=== PATIENT | male | born 1965 | race African-American/Black ===

== ENCOUNTER 2018-07-28 09:04 | Inpatient (IN) | payer OTHER ==
[~2018-07-28] VITALS: Ht 167.6 cm; Wt 75.0 kg
[~2018-07-28 09:04] MED LIST: MULTTAB61 PO
[2018-07-28 09:47] LABS: Basophils # (auto) 0 uL; Basophils % (auto) 0.5 % (0.0-2.0); Eosinophils # (auto) 0.1 uL; Lymphocytes # (auto) 1.2 uL; Monocytes # (auto) 1.1 uL; Nucleated Red Blood Cells % 0.1 %
[2018-07-28 09:49] LABS: Hematocrit 55.1 % (41.0-53.0); Hemoglobin 18.9 g/dL (13.5-17.5); Lymphocytes % (auto) 18.4 % (10.0-50.0); Mean Corpuscular Hemoglobin 32.2 pg (28.0-32.0); Mean Corpuscular Hgb Conc. 34.3 g/dL (32.0-36.0); Mean Corpuscular Volume 93.9 fL (80.0-100.0); Monocytes % (auto) 17.1 % (0.0-12.0); Neutrophils # (auto) 4.2 uL; Platelet Count (auto) 239 10^3/uL (140-450); Red Blood Cells 5.86 10^6/uL (4.5-5.90); Red Cell Distribution Width 12.5 % (11.8-14.3); White Blood Cell 6.6 10^3/uL (4.4-10.8)
[2018-07-28] MEDS ORDERED: SODIUM CHLORIDE 0.9% 1,000 ML IV ONE ×2 (09:59)
[2018-07-28 10:11] LABS: Albumin 4.2 g/dL (3.4-5.0); Calcium 9.4 mg/dL (8.5-10.1); Magnesium 2.6 mg/dL (1.6-2.6); Potassium 3.3 mmol/L (3.5-5.1)
[2018-07-28 10:17] LABS: BUN/Creatinine Ratio 16.4
[2018-07-28] MEDS ORDERED: PROMETHAZINE HCL 25 MG/ML 1ML IV PRN (11:45)
[2018-07-28] MEDS ORDERED: MORPHINE SULFATE 4 MG/ML SYR/VIAL IV PRN ×2 (11:45)
[2018-07-28] MEDS ORDERED: cefTRIAXone 1GM/50ML D5W 50 ML IV ONE (11:45)
[2018-07-28] MEDS ORDERED: NITROGLYCERIN 0.4 MG SL TAB SL PRN (11:45)
[2018-07-28] MEDS: SOD CHL 0.9%/ KCL 40MEQ 1,000 ML IV SCH ×2 (11:45→19:46)
[2018-07-28] MEDS ORDERED: MORPHINE SULF INJ 2 MG/ML SYRINGE 1ML IV PRN (11:45)
[2018-07-28 13:02] LABS: INR 1.01 (0.9-1.15); Partial Thromboplastin Time 29.2 sec (23.78-33.04); Prothrombin Time 10.8 sec (9.27-12.13)
[2018-07-28] MEDS: FAMOTIDINE (10MG/ML) 2ML VL IV SCH ×2 (14:57→23:45)
[2018-07-28] MEDS: metroNIDAZOLE 500MG/100ML 100 ML IV SCH ×2 (16:25→21:50)
[2018-07-28 18:14] VITALS: BP 132/72
--- NOTE | 2018-07-28 19:00 | NUR ---
Opening Shift Note Assumed care of patient, awake and alert. No S/S of distress/SOB or pain. Instructed on POC and to call for assist PRN, will continue to monitor for changes Q1hr and PRN.
[2018-07-28 21:53] VITALS: BP 135/76
[2018-07-29] MEDS: SOD CHL 0.9%/ KCL 40MEQ 1,000 ML IV SCH ×2 (04:09→12:45)
[2018-07-29 05:18] VITALS: BP 132/78
[2018-07-29] MEDS: metroNIDAZOLE 500MG/100ML 100 ML IV SCH ×2 (05:58→14:00)
--- NOTE | 2018-07-29 06:30 | NUR ---
RN paged Dr. Frias d/t patient refusing to have surgery and wishes to approach a different treatment alternative for his SBO. Dr. Frias returned call immediately and will speak with the patient in regards to surgery and any alternative treatments if that is what patient is seeking.
--- NOTE | 2018-07-29 08:20 | NUR ---
Opening Note Assumed care of pt, patient is lying quietly and is comfortable, no s/s of distress. Patient has some concerns regarding surgery which was discussed with the overnight stocker RN, Mejia. Will wait for Dr. Frias to make rounds as communicated. POC discussed with patient and will continue to keep patient NPO. Will continue to monitor patient Q1hr and PRN. Bed is in low, locked position, call light in reach and discussed to call if he needs anything.
[2018-07-29] MEDS ORDERED: cefTRIAXone 1GM/50ML D5W 50 ML IV SCH (09:00)
--- NOTE | 2018-07-29 09:03 | NUR ---
PA student Tobias working with Dr. Frias at bedside, Patient is refusing surgery at this time, pt stated "I want to go to my own doctor in [place]." Will continue to monitor patient Q1h and PRN. Patient is in no other discomfort or distress at this time.
[2018-07-29 09:29] VITALS: BP 126/77
[2018-07-29] MEDS ORDERED: ENOXAPARIN SOD 40 MG/0.4 ML SYRINGE SC SCH (10:00)
--- NOTE | 2018-07-29 11:00 | NUR ---
AT THE BEDSIDE DR. LIRIANO AT THE BEDSIDE. PATIENT STATES, "I FELL GREAT, I WANT TO GET OUT OF HERE." PER MD, DISCHARGE PATIENT. MD ADVISING PATIENT TO SEE HIS PRIMARY DOCTOR SOON HE LEAVES HOSPITAL. DR. LIRIANO AWARE OF PATIENTS IMAGING, LABS, AND VITALS. NO NEW ORDERS RECEIVED.
--- NOTE | 2018-07-29 11:23 | NUR ---
Refusing Lab Draw at this time.
[2018-07-29] MEDS: FAMOTIDINE (10MG/ML) 2ML VL IV SCH (11:45)
--- NOTE | 2018-07-29 13:10 | NUR ---
Patient Discharged Patient showing no s/s of distress, IV removed from the R AC, tele box removed. Patient's was at bedside and walked with him to the car to take him home, pt accompanied by Kelly ARELLANO.
--- NOTE | 2018-07-29 13:15 | NUR ---
DISCHARGE Discharge instructions given as ordered. Encourage to follow up with PMD as instructed. All questions and concerns addressed. Patient verbalized understanding. Medication reconciliation form completed and copy given to patient. IV removed with catheter intact. Patient ambulated to car with staff and family member. No distress noted at time of departure.
[2018-07-29 13:18] VITALS: BP 126/78
== END 2018-07-29 13:10 | disposition home or self-care (01) | DRG 247 ==
LOC: ER 09:04 → TELE 11:38 → TELE-WESTW 18:04
PROVIDERS: ADMIT Internal Medicine; ATTEND Internal Medicine
DX: K56.600 Partial intestinal obstruction, unspecified as to cause (principal); E87.1 Hypo-osmolality and hyponatremia; E87.6 Hypokalemia; I70.90 Unspecified atherosclerosis; E86.0 Dehydration; Z82.49 Family history of ischemic heart disease and other diseases of the circulatory system; Z90.49 Acquired absence of other specified parts of digestive tract
CPT/HCPCS: 36415; 74176; 80053; 82150; 83690; 83735; 84484; 85025; 85610; 85730; 86850; 86900; 86901; 87081; 93005; 94761; 96361; 96365; 96367; G0378; J0696; J3490